=== PATIENT | female | born 1940 | race African-American/Black ===

== ENCOUNTER 2016-07-30 11:36 | Day surgery (SDC) | payer MEDICARE ==
--- NOTE | ~2016-07-30 | OP ---
Record Of Operation [facility] [address] [place]. [address] NAME: DEYVI PEGUERO : 36 STATUS : [facility]#: [id number] AGE: 75 ADM/REG DATE : 07/30/16 MR#: [id number] REPORT SERV DATE: 08/13/16 DICTATED BY: AUDIE JOHNSON DATE: 08/13/16 REPORT STATUS : Draft TRANSCRIBED BY: MODYoselin DATE: 08/13/16 DATE OF PROCEDURE: 07/30/2016 PREOPERATIVE DIAGNOSIS: Lazaro 5 chronic left lower extremity ischemia. POSTOPERATIVE DIAGNOSIS: Lazaro 5 chronic left lower extremity ischemia. PROCEDURES: 1. Aortogram with bilateral lower extremity runoff. 2. Percutaneous angioplasty of the left anterior tibial artery with a 3 mm balloon. SURGEON: Audie Johnson M.D. TOBACCO STEMMER MACHINE: None. ANESTHESIA: MAC plus local. INDICATIONS: The patient is a 75-year-old female who has atherosclerosis of her bilateral lower extremities with a wound on her left foot. She also has some pain in her right lower extremity. Thus, she was consented for angiography with intervention. DESCRIPTION OF PROCEDURE: After informed consent was obtained, the patient was taken to the operating room and placed in the supine position on the operating table. Monitored anesthesia was administered. Her groins were prepped and draped in the usual sterile fashion. Ultrasound-guided access was obtained of the right common femoral artery using a micropuncture technique. An oblique angiogram confirmed puncture within the anterior common femoral artery. I put a wire up into the aorta and placed a 5-Lao sheath. The UF catheter was placed into the perirenal aorta. An aortogram demonstrated no hemodynamically significant aortoiliac disease with patent renal arteries. I selected out the left external iliac artery and obtained sequential imaging down the left lower extremity. There was no hemodynamically significant left common femoral, deep femoral, or superficial femoral artery disease. The popliteal artery was patent. It looked like there was a proximal anterior tibial artery stenosis, but more distal flow was not well visualized. The posterior tibial and peroneal arteries appeared to be occluded with no distal reconstitution. I placed a catheter into the left popliteal artery and obtained additional imaging that demonstrated no distal reconstitution of the posterior tibial or peroneal arteries above the ankle. There was flow via the anterior tibial artery down into the foot. I systemically heparinized and placed a 6-Lao sheath up and over the aortic bifurcation. I crossed the anterior tibial artery stenoses and angioplastied it with a 3 mm balloon. There was a great result with this. Thus, I pulled back my sheath into the right external iliac artery. I obtained sequential imaging down the right lower extremity. There was a right SFA occlusion with disease three-vessel runoff. Flow was not well visualized passed the mid leg. Thus, I withdrew my wire, catheter, and sheath and used a ProGlide device to close the arteriotomy. The patient tolerated the procedure well without any intraprocedural complications noted. Record Of Operation [facility] [address] [place]. [address] NAME: DEYVI PEGUERO : 36 STATUS : [facility]#: [id number] AGE: 75 ADM/REG DATE : 07/30/16 MR#: [id number] REPORT SERV DATE: 08/13/16 DICTATED BY: AUDIE JOHNSON DATE: 08/13/16 REPORT STATUS : Draft TRANSCRIBED BY: CHRISTINE DATE: 08/13/16 ENTRY LEVEL ACCOUNTANT/CHRISTINE Audie Johnson M.D. / [id number] CC: Mary Pitts M.D.
[~2016-07-30 11:36] MED LIST: AMIT25 PO; AMIT50 PO; ASA5GR PO; ASAB PO; ASPERCREME TOP; AT25 PO; ATV.5 PO; B121000P IM; BONIVA150 MG PO; BROVANA15 MCG INH; BUDEPRION XL150 MG PO; CALCARB PO; CALTRA600D PO; CALTRAT600 PO; CAPSAICIN T; CLARIT10 PO; COZ25 PO; CYANO1000T PO; DEBROX6.5 % OT; DRISDOL50000 UNT PO; DUONEB INH; FLONASE NAS; GGEXPSF PO; GLUCOSE TABLETS PO; GLUCOSE TABS PO; GLUCPH PO; HYDROCORT2.51 TOP; HYDROCORTISO2.5 % TOP; IMOD PO; IRON325 MG PO; KURIC2 % TOP; L20 PO; LANTUS SC; LANTUSCART SC; LIDEX CREAM 0.015 GM TOP; LIPITOR20 PO; LOP25 PO; LORTAB 5 PO; LORTAB PO; MACROBID PO; MAXIMUM D3 PO; METOPROLOL PO; MEVACOR40 MG PO; MIRALAXPKT PO; MUCINEX600 MG PO; MYRBETRIQ50 MG PO; NEUR300 PO; NICODERM C7 MG/24 HR TOP; NICOTINE LOZENGE PO; NORCO1 TA1 PO; NORV5 PO; NOVOLOG SC; OXYGEN; PLAVIX PO; PRILO PO; PRIN20 PO; PROAIR HFA INH; REFRESH OPH; ROBITUSSIN DM PO; SENNA-S PO; SENOKOTS PO; SENTAB PO; SPIRIVA INH; T PO; TESS PO; TRAZ50 PO; TRIAMCINOLON0.5 % EX; ULTRAM50 PO; VESICARE10 MG PO; VITAMIN B-121000 MC1 PO; VITD PO; WELLXL150 PO; WHITE PETROLATUM TOP; ZANTAC300 MG PO; ZOFRAN4 PO; ZOL100 PO; ZOVIRAX400 MG PO; ZYRTEC ALLGY10 MG PO; [UNRECOGNIZED DRUG - OTHER] PO
[2016-07-30 12:20] LABS: HEMOGLOBIN 13.1 g/dL (12.0-16.0)
[2016-12-27] MEDS ORDERED: ULTRAM50 PO (17:27)
[2016-12-27] MEDS ORDERED: PRAND1 PO (17:32)
[2016-12-27] MEDS ORDERED: PREND2 PO (17:33)
[2016-12-27] MEDS ORDERED: MELATONIN5 M1 PO (17:35)
[2016-12-27] MEDS ORDERED: LANTUS SC (17:35)
[2016-12-27] MEDS ORDERED: NEUR100 PO (17:37)
[2016-12-27] MEDS ORDERED: SPIRIVA INH (17:37)
[2016-12-27] MEDS ORDERED: CYANO1000T PO (17:38)
[2016-12-27] MEDS ORDERED: NOVOLOG SC (17:38)
[2016-12-27] MEDS ORDERED: L20 PO (17:39)
[2016-12-27] MEDS ORDERED: MUCINEX600 MG PO (17:39)
[2016-12-27] MEDS ORDERED: CALTRA600D PO (17:40)
[2016-12-27] MEDS ORDERED: VENELEX TOP (17:41)
[2016-12-27] MEDS ORDERED: SILVADENE1 % TOP (17:42)
[2016-12-27] MEDS ORDERED: ALBUTEROL0.083 % INH (17:43)
[2016-12-27] MEDS ORDERED: VENTOLIN HFA INH (17:43)
[2016-12-27] MEDS ORDERED: ZOL50 PO (17:44)
[2016-12-27] MEDS ORDERED: WELLXL300 PO (17:46)
[2016-12-27] MEDS ORDERED: MYRBETRIQ25 MG PO (17:46)
[2016-12-27] MEDS ORDERED: 8 HOUR650 MG PO (17:47)
[2016-12-27] MEDS ORDERED: NEUR300 PO (17:47)
[2016-12-27] MEDS ORDERED: VOLTAREN1 % TOP (17:50)
[2016-12-27] MEDS ORDERED: ZANTAC150 MG PO (17:51)
[2016-12-27] MEDS ORDERED: PLAVIX PO (17:52)
[2016-12-27] MEDS ORDERED: MYLANTA LIQUID PO (17:53)
[2016-12-27] MEDS ORDERED: LOP25 PO (17:54)
[2016-12-27] MEDS ORDERED: REFRES1 OPH (17:55)
[2016-12-27] MEDS ORDERED: HALF81 PO (17:55)
[2016-12-27] MEDS ORDERED: TESS PO (17:56)
[2016-12-27] MEDS ORDERED: MIRALAX POWDER1 PKT PO (17:56)
[2016-12-27] MEDS ORDERED: BROVANA15 MCG INH (17:58)
[2016-12-27] MEDS ORDERED: GGDM5ML PO (17:58)
[2016-12-27] MEDS ORDERED: BONIVA150 MG PO (17:59)
[2016-12-27] MEDS ORDERED: PULRESP.5 INH (17:59)
[2016-12-27] MEDS ORDERED: VITD PO (18:00)
[2016-12-27] MEDS ORDERED: T PO (18:00)
[2016-12-27] MEDS ORDERED: LIPITOR20 PO (18:00)
[2016-12-28] MEDS ORDERED: CIP5 PO (13:59)
== END 2016-07-30 19:06 | disposition home or self-care (01) ==
LOC: SDC 11:36 → SSU1 17:46
PROVIDERS: Surgery
PROC: B40DYZZ Plain Radiography of Aorta and Bilateral Lower Extremity Arteries using Other Contrast (ICD-10-PCS; principal; 2016-07-30 13:15)
PROC: 047Q3ZZ Dilation of Left Anterior Tibial Artery, Percutaneous Approach (ICD-10-PCS; 2016-07-30 13:15)
DX: I99.8 Other disorder of circulatory system (principal); E78.00 Pure hypercholesterolemia, unspecified; I73.9 Peripheral vascular disease, unspecified; I25.10 Atherosclerotic heart disease of native coronary artery without angina pectoris; I25.2 Old myocardial infarction; E11.40 Type 2 diabetes mellitus with diabetic neuropathy, unspecified; N17.9 Acute kidney failure, unspecified; J45.909 Unspecified asthma, uncomplicated; J44.9 Chronic obstructive pulmonary disease, unspecified; F32.9 Major depressive disorder, single episode, unspecified; Z90.710 Acquired absence of both cervix and uterus; Z87.891 Personal history of nicotine dependence; Z86.73 Personal history of transient ischemic attack (TIA), and cerebral infarction without residual deficits; Z88.0 Allergy status to penicillin; Z88.2 Allergy status to sulfonamides; Z88.5 Allergy status to narcotic agent; Z88.4 Allergy status to anesthetic agent; Z90.89 Acquired absence of other organs; Z98.49 Cataract extraction status, unspecified eye; Z79.4 Long term (current) use of insulin; Z79.84 Long term (current) use of oral hypoglycemic drugs; Z79.82 Long term (current) use of aspirin; Z79.02 Long term (current) use of antithrombotics/antiplatelets; Z79.899 Other long term (current) drug therapy; Z98.890 Other specified postprocedural states
CPT/HCPCS: 37228; 75625; 75716; 75774; 82962; 85014; 85018; A9270-GY; C1725; C1760; C1769; C1887; C1894; J2370; J3010; Q9966

== ENCOUNTER 2016-08-23 05:23 | Emergency (ER) | payer MEDICARE, OTHER ==
[2016-12-27] MEDS ORDERED: ULTRAM50 PO (17:27)
[2016-12-27] MEDS ORDERED: PRAND1 PO (17:32)
[2016-12-27] MEDS ORDERED: PREND2 PO (17:33)
[2016-12-27] MEDS ORDERED: LANTUS SC (17:35)
[2016-12-27] MEDS ORDERED: MELATONIN5 M1 PO (17:35)
[2016-12-27] MEDS ORDERED: NEUR100 PO (17:37)
[2016-12-27] MEDS ORDERED: SPIRIVA INH (17:37)
[2016-12-27] MEDS ORDERED: CYANO1000T PO (17:38)
[2016-12-27] MEDS ORDERED: NOVOLOG SC (17:38)
[2016-12-27] MEDS ORDERED: MUCINEX600 MG PO (17:39)
[2016-12-27] MEDS ORDERED: L20 PO (17:39)
[2016-12-27] MEDS ORDERED: CALTRA600D PO (17:40)
[2016-12-27] MEDS ORDERED: VENELEX TOP (17:41)
[2016-12-27] MEDS ORDERED: SILVADENE1 % TOP (17:42)
[2016-12-27] MEDS ORDERED: ALBUTEROL0.083 % INH (17:43)
[2016-12-27] MEDS ORDERED: VENTOLIN HFA INH (17:43)
[2016-12-27] MEDS ORDERED: ZOL50 PO (17:44)
[2016-12-27] MEDS ORDERED: WELLXL300 PO (17:46)
[2016-12-27] MEDS ORDERED: MYRBETRIQ25 MG PO (17:46)
[2016-12-27] MEDS ORDERED: 8 HOUR650 MG PO (17:47)
[2016-12-27] MEDS ORDERED: NEUR300 PO (17:47)
[2016-12-27] MEDS ORDERED: VOLTAREN1 % TOP (17:50)
[2016-12-27] MEDS ORDERED: ZANTAC150 MG PO (17:51)
[2016-12-27] MEDS ORDERED: PLAVIX PO (17:52)
[2016-12-27] MEDS ORDERED: MYLANTA LIQUID PO (17:53)
[2016-12-27] MEDS ORDERED: LOP25 PO (17:54)
[2016-12-27] MEDS ORDERED: REFRES1 OPH (17:55)
[2016-12-27] MEDS ORDERED: HALF81 PO (17:55)
[2016-12-27] MEDS ORDERED: TESS PO (17:56)
[2016-12-27] MEDS ORDERED: MIRALAX POWDER1 PKT PO (17:56)
[2016-12-27] MEDS ORDERED: GGDM5ML PO (17:58)
[2016-12-27] MEDS ORDERED: BROVANA15 MCG INH (17:58)
[2016-12-27] MEDS ORDERED: BONIVA150 MG PO (17:59)
[2016-12-27] MEDS ORDERED: PULRESP.5 INH (17:59)
[2016-12-27] MEDS ORDERED: LIPITOR20 PO (18:00)
[2016-12-27] MEDS ORDERED: VITD PO (18:00)
[2016-12-27] MEDS ORDERED: T PO (18:00)
[2016-12-28] MEDS ORDERED: CIP5 PO (13:59)
== END 2016-08-23 08:43 | disposition home or self-care (01) ==
LOC: ER 05:23
PROC: 08QNXZZ Repair Right Upper Eyelid, External Approach (ICD-10-PCS; principal; 2016-08-23)
DX: S02.31XA Fracture of orbital floor, right side, initial encounter for closed fracture (principal); S01.111A Laceration without foreign body of right eyelid and periocular area, initial encounter; H11.31 Conjunctival hemorrhage, right eye; J44.9 Chronic obstructive pulmonary disease, unspecified; N18.9 Chronic kidney disease, unspecified; E11.22 Type 2 diabetes mellitus with diabetic chronic kidney disease; Z88.0 Allergy status to penicillin; Z88.2 Allergy status to sulfonamides; Z88.5 Allergy status to narcotic agent; Z79.899 Other long term (current) drug therapy; W19.XXXA Unspecified fall, initial encounter
CPT/HCPCS: 70450; 70486; 99284

== ENCOUNTER 2016-09-13 15:46 | Emergency (ER) | payer MEDICARE, OTHER ==
[2016-09-13 17:16] LABS: BASOPHILS 0.2 %; BASOPHILS ABSOLUTE 0.02 10/3/uL (0.0-0.16); EOSINOPHILS 5.1 %; EOSINOPHILS ABSOLUTE 0.42 10/3/uL (0.0-0.53); ER CBC TAT 0 Hrs 03 Mins; HEMATOCRIT 39.6 % (36.0-48.0); HEMOGLOBIN 12.6 g/dL (12.0-16.0); IMMATURE GRANULOCYTES 0.1 %; IMMATURE GRANULOCYTES ABSOLUTE 0.01 10/3/uL (0.0-0.11); LYMPHOCYTES 25.8 %; LYMPHOCYTES ABSOLUTE 2.13 10/3/uL (0.67-4.30); MEAN CORPUS HGB CONC 31.8 g/dL (32.0-36.0); MEAN CORPUSCULAR HEMOGLOB 28.6 pg (26.0-34.0); MEAN PLATELET VOLUME 9.7 fL (9.2-13.0); MONOCYTES 8.6 %; MONOCYTES ABSOLUTE 0.71 10/3/uL (0.21-1.20); NEUTROPHILS 60.2 %; NEUTROPHILS ABSOLUTE 4.97 10/3/uL (2.02-8.40); PLATELET COUNT 321 10/3/uL (150-400); RBC DISTRIBUTION WIDTH 16.1 % (12.0-16.0); WHITE BLOOD CELLS 8.3 10/3/uL (4.5-10.5)
[2016-09-13 17:18] LABS: MANUAL DIFF NO %
[2016-09-13 17:34] LABS: A/G RATIO 0.8 (0.7-1.9); BUN (BLOOD UREA NITROGEN) 22 MG/DL (6-23); CHLORIDE, SERUM 106 MMOL/L (96-112); CO2 (CARBON DIOXIDE) 32 MMOL/L (24-34); CREATININE 1.22 MG/DL (0.55-1.02); GFR AFRICAN AMERICAN 49 ML/MIN (>=60); GFR NON AFRICAN AMERICAN 42 ML/MIN (>=60); GLOBULIN 3.9 G/DL (2.5-4.1); SGOT(AST) 14 U/L (5-40); SGPT(ALT) 15 U/L (5-65); SODIUM, SERUM 142 MMOL/L (135-148); TOTAL BILIRUBIN 0.2 MG/DL (0-1.2); TOTAL PROTEIN 6.9 G/DL (6.0-8.5)
[2016-09-13 17:36] LABS: ALKALINE PHOSPHATASE 136 U/L (45-117); GLUCOSE, SERUM 70 MG/DL (60-99)
[2016-12-27] MEDS ORDERED: ULTRAM50 PO (17:27)
[2016-12-27] MEDS ORDERED: PRAND1 PO (17:32)
[2016-12-27] MEDS ORDERED: PREND2 PO (17:33)
[2016-12-27] MEDS ORDERED: MELATONIN5 M1 PO (17:35)
[2016-12-27] MEDS ORDERED: LANTUS SC (17:35)
[2016-12-27] MEDS ORDERED: NEUR100 PO (17:37)
[2016-12-27] MEDS ORDERED: SPIRIVA INH (17:37)
[2016-12-27] MEDS ORDERED: NOVOLOG SC (17:38)
[2016-12-27] MEDS ORDERED: CYANO1000T PO (17:38)
[2016-12-27] MEDS ORDERED: MUCINEX600 MG PO (17:39)
[2016-12-27] MEDS ORDERED: L20 PO (17:39)
[2016-12-27] MEDS ORDERED: CALTRA600D PO (17:40)
[2016-12-27] MEDS ORDERED: VENELEX TOP (17:41)
[2016-12-27] MEDS ORDERED: SILVADENE1 % TOP (17:42)
[2016-12-27] MEDS ORDERED: ALBUTEROL0.083 % INH (17:43)
[2016-12-27] MEDS ORDERED: VENTOLIN HFA INH (17:43)
[2016-12-27] MEDS ORDERED: ZOL50 PO (17:44)
[2016-12-27] MEDS ORDERED: WELLXL300 PO (17:46)
[2016-12-27] MEDS ORDERED: MYRBETRIQ25 MG PO (17:46)
[2016-12-27] MEDS ORDERED: 8 HOUR650 MG PO (17:47)
[2016-12-27] MEDS ORDERED: NEUR300 PO (17:47)
[2016-12-27] MEDS ORDERED: VOLTAREN1 % TOP (17:50)
[2016-12-27] MEDS ORDERED: ZANTAC150 MG PO (17:51)
[2016-12-27] MEDS ORDERED: PLAVIX PO (17:52)
[2016-12-27] MEDS ORDERED: MYLANTA LIQUID PO (17:53)
[2016-12-27] MEDS ORDERED: LOP25 PO (17:54)
[2016-12-27] MEDS ORDERED: REFRES1 OPH (17:55)
[2016-12-27] MEDS ORDERED: HALF81 PO (17:55)
[2016-12-27] MEDS ORDERED: MIRALAX POWDER1 PKT PO (17:56)
[2016-12-27] MEDS ORDERED: TESS PO (17:56)
[2016-12-27] MEDS ORDERED: GGDM5ML PO (17:58)
[2016-12-27] MEDS ORDERED: BROVANA15 MCG INH (17:58)
[2016-12-27] MEDS ORDERED: BONIVA150 MG PO (17:59)
[2016-12-27] MEDS ORDERED: PULRESP.5 INH (17:59)
[2016-12-27] MEDS ORDERED: LIPITOR20 PO (18:00)
[2016-12-27] MEDS ORDERED: VITD PO (18:00)
[2016-12-27] MEDS ORDERED: T PO (18:00)
[2016-12-28] MEDS ORDERED: CIP5 PO (13:59)
== END 2016-09-13 20:08 | disposition home or self-care (01) ==
LOC: ER 15:46
PROVIDERS: Hospitalist
DX: M79.604 Pain in right leg (principal); R06.02 Shortness of breath; R09.02 Hypoxemia; J45.909 Unspecified asthma, uncomplicated; J44.9 Chronic obstructive pulmonary disease, unspecified; E11.22 Type 2 diabetes mellitus with diabetic chronic kidney disease; N18.9 Chronic kidney disease, unspecified; Z90.710 Acquired absence of both cervix and uterus; F17.200 Nicotine dependence, unspecified, uncomplicated; Z88.0 Allergy status to penicillin; Z88.2 Allergy status to sulfonamides; Z88.5 Allergy status to narcotic agent; Z88.8 Allergy status to other drugs, medicaments and biological substances; Z79.4 Long term (current) use of insulin; Z79.02 Long term (current) use of antithrombotics/antiplatelets; Z79.899 Other long term (current) drug therapy
CPT/HCPCS: 71010; 73560-LT; 80053; 85025; 93971; 99285

== ENCOUNTER 2016-10-05 20:33 | Inpatient (IN) | payer MEDICARE ==
--- NOTE | ~2016-10-05 | DS ---
Discharge Summary [facility] [address] [place]. [address] NAME: DEYVI PEGUERO : 36 STATUS : DIS IN PAT#: [id number] AGE: 76 ADM/REG DATE : 10/05/16 MR#: [id number] REPORT SERV DATE: 10/16/16 DICTATED BY: VIRGINIA OLMEDO DATE: 10/15/16 REPORT STATUS : Draft TRANSCRIBED BY: CHRISTINE DATE: 10/15/16 Data Collection from hospitalization DISCHARGE DIAGNOSIS(ES): 1. Chronic obstructive pulmonary disease with exacerbation, improved. 2. Urinary tract infection. 3. Coronary artery disease, stable BNP of 112. 4. Depression. 5. Peripheral vascular disease with left lower extremity calluses. CONSULTATIONS: None. PROCEDURES PERFORMED: Venous imaging of the left lower extremity, 10/07/2016. MEDICATIONS: Refresh two drops each eye four times daily; aspirin 81 mg daily; Voltaren 2 g topically four times daily as needed; Lipitor 20 mg at bedtime; Wellbutrin XL 200 mg daily; Plavix 75 mg daily; vitamin B12 of 100 mcg daily; Caltrate 600 mg twice daily; Diabetic Tussin 10 mL every four hours as needed for cough, Zantac 150 mg twice daily, Lasix 20 mg every morning, Neurontin 300 mg at bedtime, 100 mg in the morning and afternoon; Mucinex 600 mg twice daily; Lantus SoloSTAR 40 units daily; Levaquin 750 mg daily through 10/12/2016; Zyrtec 10 mg daily; Medrol 4 mg after lunch and supper, 4 mg at bedtime, 4 mg before breakfast; Lopressor 25 mg twice daily; Myrbetriq 25 mg at bedtime; Zoloft 50 mg daily; Brovana 15 mcg twice daily; Pulmicort Respules 0.5 mg twice daily; Tylenol 650 mg four times daily as needed; Prandin 0.5 mg three times daily; Maranda-Lanta 30 mL every six hours as needed for heartburn; MiraLAX powder 17 g daily as needed for constipation; Tessalon 100 to 200 mg three times daily; DuoNeb four times daily as needed for shortness of breath; Boniva 150 mg every 30 days; vitamin D 50,000 units every 30 days; and Spiriva one capsule every morning peak flow meter three times daily and as needed. CONDITION AT DISCHARGE: Upon discharge, she did appear to be doing well and had no new complaints. DISPOSITION: She was to have a mechanically soft diet with chopped meats with gravy. She was to have activity as discussed. HOSPITAL COURSE: This 76-year-old female was in her usual state of health until the afternoon of admission. After arriving home, she developed nausea and vomiting. While our [employer] TALENT DIRECTOR was there, she complained of feeling unwell and having chills, and when they checked her temperature, apparently, she had a temperature of 101.2 and she was transferred to the hospital for further evaluation. On arrival, in the emergency room, she had a temperature of 101.4 and appeared ill. The ER attending appreciated crackles on exam and was concerned that the patient had aspirated and she was started on IV Levaquin. On the morning following admission, she was up and about to eat breakfast, but she was a poor historian and could not give any significant details as to why she was in the hospital. I did speak to both of her daughters, Lizette Segundo and Leticia Mckeon, and they pretty much confirmed the above history. She was admitted for further evaluation and treatment. Upon admission to the hospital, she had been placed on a diet as tolerated. She was begun on oxygen at 4 L by nasal cannula. She had been placed on bronchodilators per protocol. She Discharge Summary [address] [place]. [address] NAME: DEYVI PEGUERO CRISTIANO : 36 STATUS : DIS IN PAT#: [id number] AGE: 76 ADM/REG DATE : 10/05/16 MR#: [id number] REPORT SERV DATE: 10/16/16 DICTATED BY: VIRGINIA OLMEDO DATE: 10/15/16 REPORT STATUS : Draft TRANSCRIBED BY: CHRISTINE DATE: 10/15/16 was begun on Levaquin at 750 mg IV daily. She had also been placed on electrolyte replacement protocol. Following the day of admission, she was afebrile and her vital signs were stable and she did appear to be doing well. She was continued on her current medications. On 10/07/2016, she had no acute complaints. She was afebrile, and her vital signs had remained stable. Her WBCs were 13.7. She was continued on Levaquin and bronchodilators and was begun on Medrol Dosepak. She did undergo the above left lower extremity venous ultrasound. She was found to have a stage I pressure ulcer on the left heel. She had been evaluated by Physical Therapy. On 10/08/2016, she did state that she had felt better, however, did still have a deep wet cough noted. Her O2 saturation on 3 L was at 92%. She was continued on supportive care. Her venous ultrasound had revealed no DVT. She was continued on her current medications. Blood cultures x2 were noted to have been negative. She was noted to be nitrite positive on her urine. However, no urine culture was done, but she was on Levaquin. She did remain in stable condition, and as she continued to do well, she was then discharged on 10/09/2016 with the above instructions. Information collected by: Santa Stoner. I submit the above information as my discharge summary. BUFFY/CHRISTINE Virginia Olmedo M.D. / [id number] CC: Mary Myers M.D.
--- NOTE | ~2016-10-05 | HP ---
History And Physical [address] [place] [address] NAME: DEYVI PEGUERO : 38 STATUS : ADM IN PAT#: [id number] AGE: 76 ADM/REG DATE : 10/05/16 MR#: [id number] REPORT SERV DATE: 10/06/16 DICTATED BY: VIRGINIA OLMEDO DATE: 10/06/16 REPORT STATUS : Draft TRANSCRIBED BY: MODL DATE: 10/06/16 DATE OF ADMISSION: 10/05/2016 ADDENDUM The patient did have an EKG which showed sinus tachycardia at 160 beats per minute with some premature atrial complexes, left atrial enlargement, left axis deviation and a Q and III and aVF but no acute ST changes. NEIL/CHRISTINE Virginia Olmedo M.D. / [id number] CC: Mary Myers M.D.
--- NOTE | ~2016-10-05 | HP ---
History And Physical [address] [address] NAME: DEYVI MASON : 36 STATUS : ADM IN [facility]#: [id number] AGE: 76 ADM/REG DATE : 10/05/16 MR#: [id number] REPORT SERV DATE: 10/06/16 DICTATED BY: VIRGINIA OLMEDO DATE: 10/06/16 REPORT STATUS : Draft TRANSCRIBED BY: MODL DATE: 10/06/16 DATE OF ADMISSION: 10/05/2016 CHIEF COMPLAINT: Nausea, vomiting, and fever. HISTORY OF PRESENT ILLNESS: Ms. Mason is a 76-year-old female, who was in her usual state of health until yesterday afternoon after arriving home, she developed nausea and vomiting. While our PACE PEAR PICKER was there, she complained of feeling unwell and having chills, and when they checked her temperature, apparently she had a temperature of 101.2, so she was transferred to the hospital for further evaluation. On arrival in the ER, she had a temperature of 101.4 and appeared ill. The ER attending appreciated crackles on exam and was concerned that the patient has aspirated, so she was started on IV Levaquin. This morning, the patient is up and about to eat breakfast, but she is a poor historian and could not give any significant details as to why she was in the hospital. I did speak to both her daughters, Lizette Segundo and Leticia Osborn, and they pretty much confirmed the above history. ALLERGIES: PENICILLIN, MORPHINE, SULFA, AND NOVOCAIN. PRESENT MEDICATIONS: Include Lantus 51 units at 6 p.m., Refresh eyedrops, guaifenesin ER 600 mg twice daily, MiraLAX 17 g daily as needed, vitamin B12 at 1000 mcg daily, sertraline 100 mg at bedtime, Tessalon Perles 100 mg one to two tablets three times a day as needed, Robitussin, Zyrtec 10 mg daily, Lasix 20 mg daily, CalCarb with vitamin D 600/400 twice daily, DuoNeb q.4 to 6 hours as needed, Brovana 1 nebulizer treatment twice daily, Pulmicort nebulizer twice daily, Boniva 150 mg monthly, gabapentin 300 mg at bedtime and 100 mg in the a.m. and 100 mg in afternoon, bupropion XL 150 mg daily, Tylenol 650 four times a day as needed, tramadol 50 mg at bedtime as needed, repaglinide 0.5 mg 1 tablet 15 minutes before each meal, Voltaren gel, Myrbetriq 50 mg daily, ranitidine 150 mg twice daily, Plavix 75 mg daily, Mylanta as needed, metoprolol 25 mg daily, aspirin 81 mg daily, vitamin D3 monthly, atorvastatin 20 mg at bedtime, oxygen 2 L at bedtime, and Spiriva HandiHaler 18 mcg daily. PAST MEDICAL HISTORY: Significant for type 2 diabetes with peripheral vascular disease, coronary artery disease, status post OR, hyperlipidemia, COPD, ex-smoker, pulmonary nodules, chronic kidney disease stage 3, osteoarthritis, osteoporosis, multinodular goiter, hyperparathyroidism, depression, bladder spasms, and gastroesophageal reflux disease. SOCIAL HISTORY: She is a former smoker and she lives with her daughter and she is a [employer] participant. FAMILY HISTORY: Noncontributory. REVIEW OF SYSTEMS: She denies chest pain, shortness of breath, or chills. No abdominal pain. Denies nausea. PHYSICAL EXAMINATION: VITAL SIGNS: Temperature is 97.3, blood pressure is 145/66, pulse is 108, respiratory rate History And Physical [address] [address] NAME: DEYVI MASON : 38 STATUS : ADM IN [facility]#: [id number] AGE: 76 ADM/REG DATE : 10/05/16 MR#: [id number] REPORT SERV DATE: 10/06/16 DICTATED BY: VIRGINIA OLMEDO DATE: 10/06/16 REPORT STATUS : Draft TRANSCRIBED BY: CHRISTINE DATE: 10/06/16 is 18, and O2 saturation is 96% on 4 L. GENERAL: She is an elderly black female, in no apparent distress. Oxygen via nasal cannula. HEENT: Normocephalic, atraumatic. Conjunctiva not injected. No scleral icterus. Edentulous. NECK: Supple. No JVD. She does have thyroid enlargement, right greater than left. CARDIAC: Regular rate and rhythm. LUNGS: Diffuse rhonchi. She does have some crackles at her right base. ABDOMEN: Positive bowel sounds. Soft, nondistended, nontender. Does have scars. GENITOURINARY: No fold. EXTREMITIES: She has trace edema with linear indentations indicating that she did have edema and now her legs have decreased in size. Her left lower extremity is larger than her right lower extremity. She does have a scar on her left lower extremity, not sure that is due to vein ligation, etc., NEUROLOGIC: She is alert, fluent, follow simple directions, but she is really unable to answer questions. Her answers are vague and really does not give a lot of detail. No facial drooping. No obvious focal weakness. SKIN: No pressure ulcers. LABORATORY EVALUATION: White count on admission was 16.9, this morning it is 17.4; hemoglobin is 11.8, and normal platelet. Sodium was 139, chloride 104, potassium 4.4, BUN 18, creatinine 1.03, glucose was 208, albumin was 3.1, alkaline phosphatase 145, lipase was normal at 78. Lactate was normal at 0.8. UA just showed positive nitrites, but only occasional bacteria, and 3 wbc's. Chest x-ray on admission showed pulmonary venous hypertension with mild pleural edema. No consolidation or effusion. Chest x-ray this morning shows pulmonary hypertension, it is mildly improved. IMPRESSION AND PLAN: 1. Fever. Admitting diagnosis was aspiration pneumonia. There is not anything definite on chest x-ray. She does have crackles at the right base. She also has chronic obstructive pulmonary disease. Her white count is elevated. She is requiring significant amount of oxygen. Radiographic appearance of pneumonia sometimes lags behind, so we will continue the Levaquin. Updated her daughters on the risk of tendon rupture, peripheral neuropathy, and mental status changes as being a risk for using this medication; however, we are limited risks her allergies. Continue her broncholith dilators, her inhaled steroids, her oxygen, her Mucinex, and we will follow up on her blood cultures. 2. Type 2 diabetes. I will reduce her Lantus from 51 units to 20 units. We will initiate a hypoglycemic protocol. Use a NovoLog sliding scale. Discontinue her oral hypoglycemic. 3. Left lower extremity is larger than right lower extremity. We will do an ultrasound of the left lower extremity to rule out deep venous thrombosis. For her coronary artery disease, we will continue her metoprolol, her aspirin, her Plavix, and atorvastatin. I suspect her pulse is elevated because she has not received her metoprolol and she is having a rebound tachycardia. For her depression, we will continue her sertraline and History And Physical [address] [place]. [address] NAME: DEYVI MASON : 36 STATUS : ADM IN PAT#: [id number] AGE: 76 ADM/REG DATE : 10/05/16 MR#: [id number] REPORT SERV DATE: 10/06/16 DICTATED BY: VIRGINIA OLMEDO DATE: 10/06/16 REPORT STATUS : Draft TRANSCRIBED BY: CHRISTINE DATE: 10/06/16 her bupropion. For gastroesophageal reflux disease, we will continue her on ranitidine. For her pain, we will continue tramadol once daily as needed and her Voltaren gel. For her venous insufficiency, we will continue her furosemide. I do not see that she has a diagnosis of heart failure, but because of the pulmonary vascular congestion, I will just go ahead and get a BNP for the morning, but of present, she has a little peripheral edema and is not complaining about shortness of breath, and lastly, the patient is a DNR with limited additional interventions. NEIL/CHRISTINE Virginia Olmedo M.D. / [id number] CC: Mary Myers M.D.
[2016-10-05 19:31] LABS: BASOPHILS 0.1 %; BASOPHILS ABSOLUTE 0.02 10/3/uL (0.0-0.16); EOSINOPHILS 0.3 %; EOSINOPHILS ABSOLUTE 0.05 10/3/uL (0.0-0.53); ER CBC TAT 0 Hrs 00 Mins; HEMATOCRIT 37.3 % (36.0-48.0); HEMOGLOBIN 11.8 g/dL (12.0-16.0); IMMATURE GRANULOCYTES 0.3 %; IMMATURE GRANULOCYTES ABSOLUTE 0.05 10/3/uL (0.0-0.11); LYMPHOCYTES 5.7 %; LYMPHOCYTES ABSOLUTE 0.96 10/3/uL (0.67-4.30); MEAN CORPUS HGB CONC 31.6 g/dL (32.0-36.0); MEAN CORPUSCULAR VOLUME 88.6 fL (80-100); MEAN PLATELET VOLUME 9.9 fL (9.2-13.0); MONOCYTES 4.7 %; MONOCYTES ABSOLUTE 0.79 10/3/uL (0.21-1.20); NEUTROPHILS 88.9 %; PLATELET COUNT 357 10/3/uL (150-400); RBC DISTRIBUTION WIDTH 15.5 % (12.0-16.0); RED CELL COUNT 4.21 10/6/uL (4.0-5.6)
[2016-10-05 19:33] LABS: MANUAL DIFF NO %; WHITE BLOOD CELLS 16.9 10/3/uL (4.5-10.5)
[2016-10-05 19:45] LABS: A/G RATIO 0.8 (0.7-1.9); ALBUMIN 3.1 G/DL (3.5-5.0); ALKALINE PHOSPHATASE 145 U/L (45-117); CALCIUM, SERUM 8.9 MG/DL (8.5-10.4); CHLORIDE, SERUM 104 MMOL/L (96-112); CO2 (CARBON DIOXIDE) 28 MMOL/L (24-34); CREATININE 1.03 MG/DL (0.55-1.02); GFR AFRICAN AMERICAN 60 ML/MIN (>=60); GFR NON AFRICAN AMERICAN 52 ML/MIN (>=60); GLOBULIN 3.8 G/DL (2.5-4.1); POTASSIUM, SERUM 4.4 MMOL/L (3.5-5.3); SGOT(AST) 14 U/L (5-40); SGPT(ALT) 18 U/L (5-65); SODIUM, SERUM 139 MMOL/L (135-148); TOTAL BILIRUBIN 0.6 MG/DL (0-1.2); TOTAL PROTEIN 6.9 G/DL (6.0-8.5)
[2016-10-05 19:47] LABS: BUN (BLOOD UREA NITROGEN) 18 MG/DL (6-23); GLUCOSE, SERUM 208 MG/DL (60-99)
[2016-10-05 19:48] LABS: LACTATE 0.8 MMOL/L (0.3-2.4)
[2016-10-05 20:46] LABS: INTERNATIONAL NORMAL RATI 1.1 UNITS (-); PARTIAL THROMBO TIME 34.2 SEC (22.5-37.2); PROTIME (NOT ORD) 14.3 SEC (12.0-14.5)
[2016-10-05 21:11] LABS: ASCORBIC ACID (UR NOT ORDER) NEG (NEG); BILIRUBIN, URINE NEGATIVE (NEG); ER URINALYSIS TAT 0 Hrs 15 Mins; KETONE, URINE NEGATIVE (NEG); LEUKOCYTE ESTERASE(NOT OR NEG (NEG); NITRITE (URINE) POS (NEG); WBC (NOT ORDERED) (RFLEX) 3 (0-5)
[2016-10-05] MEDS ORDERED: WELLXL150 PO (23:10)
[2016-10-05] MEDS ORDERED: NEUR100 PO (23:10)
[2016-10-05] MEDS ORDERED: NEUR300 PO (23:10)
[2016-10-05] MEDS ORDERED: PRAND5 PO ×2 (23:11→23:12)
[2016-10-05] MEDS ORDERED: T PO (23:11)
[2016-10-05] MEDS ORDERED: ZANTAC 150 PO (23:12)
[2016-10-05] MEDS ORDERED: MYRBETRIQ50 MG PO (23:12)
[2016-10-05] MEDS ORDERED: VOLTAREN1 % TOP (23:12)
[2016-10-05] MEDS ORDERED: PLAVIX PO (23:13)
[2016-10-05] MEDS ORDERED: ASAB PO (23:13)
[2016-10-05] MEDS ORDERED: GERI-LANTA PO (23:13)
[2016-10-05] MEDS ORDERED: LOP25 PO (23:13)
[2016-10-05] MEDS ORDERED: MIRALAX POWDER1 PKT PO (23:14)
[2016-10-05] MEDS ORDERED: CYANO1000T PO (23:14)
[2016-10-05] MEDS ORDERED: REFRESH OPH SO0.3 ML OPH (23:14)
[2016-10-05] MEDS ORDERED: LANTUSCART SC (23:14)
[2016-10-05] MEDS ORDERED: TESS PO (23:15)
[2016-10-05] MEDS ORDERED: ZOL100 PO (23:15)
[2016-10-05] MEDS ORDERED: ZYRTEC ALLGY10 MG PO (23:18)
[2016-10-05] MEDS ORDERED: L20 PO (23:18)
[2016-10-05] MEDS ORDERED: DIABETIC PO (23:18)
[2016-10-05] MEDS ORDERED: BROVANA15 MCG INH (23:19)
[2016-10-05] MEDS ORDERED: CALTRA600D PO (23:19)
[2016-10-05] MEDS ORDERED: DUONEB INH (23:19)
[2016-10-05] MEDS ORDERED: BONIVA150 MG PO (23:20)
[2016-10-05] MEDS ORDERED: PULRESP.5 INH (23:20)
[2016-10-05] MEDS ORDERED: VITD PO (23:21)
[2016-10-05] MEDS ORDERED: SPIRIVA INH (23:21)
[2016-10-05] MEDS ORDERED: LIPITOR20 PO (23:21)
[2016-10-05] MEDS ORDERED: MUCINEX600 MG PO (23:24)
[2016-10-06 05:41] LABS: A/G RATIO 0.8 (0.7-1.9); ALBUMIN 2.9 G/DL (3.5-5.0); ALKALINE PHOSPHATASE 125 U/L (45-117); BUN (BLOOD UREA NITROGEN) 17 MG/DL (6-23); CALCIUM, SERUM 8.7 MG/DL (8.5-10.4); CHLORIDE, SERUM 103 MMOL/L (96-112); CO2 (CARBON DIOXIDE) 30 MMOL/L (24-34); GFR AFRICAN AMERICAN 56 ML/MIN (>=60); GFR NON AFRICAN AMERICAN 48 ML/MIN (>=60); GLOBULIN 3.6 G/DL (2.5-4.1); GLUCOSE, SERUM 156 MG/DL (60-99); SGOT(AST) 10 U/L (5-40); SGPT(ALT) 17 U/L (5-65); SODIUM, SERUM 138 MMOL/L (135-148); TOTAL BILIRUBIN 0.4 MG/DL (0-1.2); TOTAL PROTEIN 6.5 G/DL (6.0-8.5)
[2016-10-06 06:04] LABS: BASOPHILS 0.1 %; BASOPHILS ABSOLUTE 0.02 10/3/uL (0.0-0.16); EOSINOPHILS 0.1 %; EOSINOPHILS ABSOLUTE 0.01 10/3/uL (0.0-0.53); HEMATOCRIT 35.5 % (36.0-48.0); HEMOGLOBIN 11.6 g/dL (12.0-16.0); IMMATURE GRANULOCYTES 0.3 %; IMMATURE GRANULOCYTES ABSOLUTE 0.06 10/3/uL (0.0-0.11); LYMPHOCYTES 9.4 %; LYMPHOCYTES ABSOLUTE 1.63 10/3/uL (0.67-4.30); MEAN CORPUS HGB CONC 32.7 g/dL (32.0-36.0); MEAN CORPUSCULAR HEMOGLOB 29.1 pg (26.0-34.0); MEAN PLATELET VOLUME 10.2 fL (9.2-13.0); MONOCYTES 7.3 %; MONOCYTES ABSOLUTE 1.27 10/3/uL (0.21-1.20); NEUTROPHILS 82.8 %; NEUTROPHILS ABSOLUTE 14.39 10/3/uL (2.02-8.40); RBC DISTRIBUTION WIDTH 15.3 % (12.0-16.0); RED CELL COUNT 3.99 10/6/uL (4.0-5.6); WHITE BLOOD CELLS 17.4 10/3/uL (4.5-10.5)
[2016-10-06 06:26] LABS: MANUAL DIFF NO %; PLATELET COUNT 326 10/3/uL (150-400)
[2016-10-06 06:28] LABS: PLATELET ESTIMATE ADQ (ADEQUATE); RBC MORPHOLOGY NORM (NORMAL)
[2016-10-07 06:20] LABS: BASOPHILS 0.1 %; BASOPHILS ABSOLUTE 0.01 10/3/uL (0.0-0.16); EOSINOPHILS 1.5 %; HEMATOCRIT 35.6 % (36.0-48.0); HEMOGLOBIN 11.3 g/dL (12.0-16.0); IMMATURE GRANULOCYTES 0.2 %; IMMATURE GRANULOCYTES ABSOLUTE 0.03 10/3/uL (0.0-0.11); LYMPHOCYTES 9.3 %; LYMPHOCYTES ABSOLUTE 1.28 10/3/uL (0.67-4.30); MEAN CORPUS HGB CONC 31.7 g/dL (32.0-36.0); MEAN CORPUSCULAR HEMOGLOB 28.3 pg (26.0-34.0); MEAN CORPUSCULAR VOLUME 89.2 fL (80-100); MEAN PLATELET VOLUME 9.8 fL (9.2-13.0); MONOCYTES 6.8 %; MONOCYTES ABSOLUTE 0.93 10/3/uL (0.21-1.20); NEUTROPHILS 82.1 %; NEUTROPHILS ABSOLUTE 11.24 10/3/uL (2.02-8.40); PLATELET COUNT 322 10/3/uL (150-400); RBC DISTRIBUTION WIDTH 15.6 % (12.0-16.0); RED CELL COUNT 3.99 10/6/uL (4.0-5.6); WHITE BLOOD CELLS 13.7 10/3/uL (4.5-10.5)
[2016-10-07 06:21] LABS: MANUAL DIFF NO %
[2016-10-07 06:28] LABS: BUN (BLOOD UREA NITROGEN) 15 MG/DL (6-23); CALCIUM, SERUM 9.2 MG/DL (8.5-10.4); CHLORIDE, SERUM 106 MMOL/L (96-112); CO2 (CARBON DIOXIDE) 28 MMOL/L (24-34); CREATININE 1.02 MG/DL (0.55-1.02); GFR AFRICAN AMERICAN 61 ML/MIN (>=60); GFR NON AFRICAN AMERICAN 53 ML/MIN (>=60); GLUCOSE, SERUM 111 MG/DL (60-99); POTASSIUM, SERUM 4.3 MMOL/L (3.5-5.3); SODIUM, SERUM 140 MMOL/L (135-148)
[2016-10-08 05:54] LABS: BASOPHILS 0.1 %; BASOPHILS ABSOLUTE 0.01 10/3/uL (0.0-0.16); EOSINOPHILS 0 %; HEMATOCRIT 34.6 % (36.0-48.0); HEMOGLOBIN 11.1 g/dL (12.0-16.0); IMMATURE GRANULOCYTES 0.2 %; IMMATURE GRANULOCYTES ABSOLUTE 0.02 10/3/uL (0.0-0.11); LYMPHOCYTES 8.7 %; LYMPHOCYTES ABSOLUTE 0.96 10/3/uL (0.67-4.30); MEAN CORPUS HGB CONC 32.1 g/dL (32.0-36.0); MEAN CORPUSCULAR HEMOGLOB 28.1 pg (26.0-34.0); MEAN CORPUSCULAR VOLUME 87.6 fL (80-100); MEAN PLATELET VOLUME 9.9 fL (9.2-13.0); MONOCYTES 6.4 %; NEUTROPHILS 84.6 %; PLATELET COUNT 333 10/3/uL (150-400); RBC DISTRIBUTION WIDTH 15.4 % (12.0-16.0); RED CELL COUNT 3.95 10/6/uL (4.0-5.6)
[2016-10-08 05:57] LABS: MANUAL DIFF NO %
[2016-10-08 06:03] LABS: BUN (BLOOD UREA NITROGEN) 17 MG/DL (6-23); CALCIUM, SERUM 9.3 MG/DL (8.5-10.4); CHLORIDE, SERUM 101 MMOL/L (96-112); CO2 (CARBON DIOXIDE) 28 MMOL/L (24-34); CREATININE 1.13 MG/DL (0.55-1.02); GFR AFRICAN AMERICAN 54 ML/MIN (>=60); GFR NON AFRICAN AMERICAN 47 ML/MIN (>=60); GLUCOSE, SERUM 229 MG/DL (60-99); POTASSIUM, SERUM 4.4 MMOL/L (3.5-5.3); SODIUM, SERUM 134 MMOL/L (135-148)
[2016-10-09 05:58] LABS: BASOPHILS 0.1 %; BASOPHILS ABSOLUTE 0.01 10/3/uL (0.0-0.16); EOSINOPHILS 0.1 %; EOSINOPHILS ABSOLUTE 0.01 10/3/uL (0.0-0.53); HEMATOCRIT 36.2 % (36.0-48.0); IMMATURE GRANULOCYTES 0.4 %; IMMATURE GRANULOCYTES ABSOLUTE 0.04 10/3/uL (0.0-0.11); LYMPHOCYTES 14.3 %; LYMPHOCYTES ABSOLUTE 1.53 10/3/uL (0.67-4.30); MEAN CORPUS HGB CONC 33.1 g/dL (32.0-36.0); MEAN CORPUSCULAR HEMOGLOB 29.1 pg (26.0-34.0); MEAN CORPUSCULAR VOLUME 87.7 fL (80-100); MONOCYTES 7.2 %; MONOCYTES ABSOLUTE 0.77 10/3/uL (0.21-1.20); NEUTROPHILS 77.9 %; NEUTROPHILS ABSOLUTE 8.33 10/3/uL (2.02-8.40); PLATELET COUNT 354 10/3/uL (150-400); RBC DISTRIBUTION WIDTH 14.8 % (12.0-16.0); RED CELL COUNT 4.13 10/6/uL (4.0-5.6); WHITE BLOOD CELLS 10.7 10/3/uL (4.5-10.5)
[2016-10-09 05:59] LABS: MANUAL DIFF NO %
[2016-10-09 06:18] LABS: BUN (BLOOD UREA NITROGEN) 22 MG/DL (6-23); CALCIUM, SERUM 9.9 MG/DL (8.5-10.4); CHLORIDE, SERUM 98 MMOL/L (96-112); CO2 (CARBON DIOXIDE) 26 MMOL/L (24-34); CREATININE 1.02 MG/DL (0.55-1.02); GFR AFRICAN AMERICAN 61 ML/MIN (>=60); GFR NON AFRICAN AMERICAN 53 ML/MIN (>=60); GLUCOSE, SERUM 267 MG/DL (60-99); POTASSIUM, SERUM 4.6 MMOL/L (3.5-5.3); SODIUM, SERUM 131 MMOL/L (135-148)
[2016-10-09] MEDS ORDERED: WELLBUTRIN200 MG PO (10:20)
[2016-10-09] MEDS ORDERED: LANTUS (10:29)
[2016-10-09] MEDS ORDERED: LEVAQUIN750 MG PO (10:31)
[2016-10-09] MEDS ORDERED: MEDROL4 PO (10:33)
[2016-10-09] MEDS ORDERED: MEDROL4 ×3 (10:34→10:36)
[2016-10-09] MEDS ORDERED: MYRBETRIQ25 MG (10:38)
[2016-10-09] MEDS ORDERED: ZOL50 PO (10:39)
[2016-12-27] MEDS ORDERED: ULTRAM50 PO (17:27)
[2016-12-27] MEDS ORDERED: PRAND1 PO (17:32)
[2016-12-27] MEDS ORDERED: PREND2 PO (17:33)
[2016-12-27] MEDS ORDERED: LANTUS SC (17:35)
[2016-12-27] MEDS ORDERED: MELATONIN5 M1 PO (17:35)
[2016-12-27] MEDS ORDERED: NEUR100 PO (17:37)
[2016-12-27] MEDS ORDERED: SPIRIVA INH (17:37)
[2016-12-27] MEDS ORDERED: CYANO1000T PO (17:38)
[2016-12-27] MEDS ORDERED: NOVOLOG SC (17:38)
[2016-12-27] MEDS ORDERED: L20 PO (17:39)
[2016-12-27] MEDS ORDERED: MUCINEX600 MG PO (17:39)
[2016-12-27] MEDS ORDERED: CALTRA600D PO (17:40)
[2016-12-27] MEDS ORDERED: VENELEX TOP (17:41)
[2016-12-27] MEDS ORDERED: SILVADENE1 % TOP (17:42)
[2016-12-27] MEDS ORDERED: ALBUTEROL0.083 % INH (17:43)
[2016-12-27] MEDS ORDERED: VENTOLIN HFA INH (17:43)
[2016-12-27] MEDS ORDERED: ZOL50 PO (17:44)
[2016-12-27] MEDS ORDERED: WELLXL300 PO (17:46)
[2016-12-27] MEDS ORDERED: MYRBETRIQ25 MG PO (17:46)
[2016-12-27] MEDS ORDERED: NEUR300 PO (17:47)
[2016-12-27] MEDS ORDERED: 8 HOUR650 MG PO (17:47)
[2016-12-27] MEDS ORDERED: VOLTAREN1 % TOP (17:50)
[2016-12-27] MEDS ORDERED: ZANTAC150 MG PO (17:51)
[2016-12-27] MEDS ORDERED: PLAVIX PO (17:52)
[2016-12-27] MEDS ORDERED: MYLANTA LIQUID PO (17:53)
[2016-12-27] MEDS ORDERED: LOP25 PO (17:54)
[2016-12-27] MEDS ORDERED: HALF81 PO (17:55)
[2016-12-27] MEDS ORDERED: REFRES1 OPH (17:55)
[2016-12-27] MEDS ORDERED: MIRALAX POWDER1 PKT PO (17:56)
[2016-12-27] MEDS ORDERED: TESS PO (17:56)
[2016-12-27] MEDS ORDERED: BROVANA15 MCG INH (17:58)
[2016-12-27] MEDS ORDERED: GGDM5ML PO (17:58)
[2016-12-27] MEDS ORDERED: BONIVA150 MG PO (17:59)
[2016-12-27] MEDS ORDERED: PULRESP.5 INH (17:59)
[2016-12-27] MEDS ORDERED: T PO (18:00)
[2016-12-27] MEDS ORDERED: VITD PO (18:00)
[2016-12-27] MEDS ORDERED: LIPITOR20 PO (18:00)
[2016-12-28] MEDS ORDERED: CIP5 PO (13:59)
== END 2016-10-09 14:30 | disposition home or self-care (01) | DRG 191 ==
LOC: ER 20:33 → 7NO 22:41
PROVIDERS: Emergency Medicine; Internal Medicine Geriatric Medicine
DX: J44.1 Chronic obstructive pulmonary disease with (acute) exacerbation (principal); N39.0 Urinary tract infection, site not specified; E11.51 Type 2 diabetes mellitus with diabetic peripheral angiopathy without gangrene; N18.3 Chronic kidney disease, stage 3 (moderate); I25.10 Atherosclerotic heart disease of native coronary artery without angina pectoris; E78.5 Hyperlipidemia, unspecified; I25.2 Old myocardial infarction; I73.9 Peripheral vascular disease, unspecified; F32.9 Major depressive disorder, single episode, unspecified; K21.9 Gastro-esophageal reflux disease without esophagitis; Z66 Do not resuscitate; I49.1 Atrial premature depolarization; L89.621 Pressure ulcer of left heel, stage 1; L84 Corns and callosities; E03.9 Hypothyroidism, unspecified; M19.90 Unspecified osteoarthritis, unspecified site; Z79.02 Long term (current) use of antithrombotics/antiplatelets; Z79.4 Long term (current) use of insulin; Z88.4 Allergy status to anesthetic agent; Z88.2 Allergy status to sulfonamides; Z88.0 Allergy status to penicillin; Z87.891 Personal history of nicotine dependence; Z79.82 Long term (current) use of aspirin
CPT/HCPCS: 71010; 76775; 80048; 80053; 81001; 82962; 83605; 83690; 83735; 83880; 85025; 85610; 85730; 87040; 93005; 93971; 94640; 96365; 97161-GP; 99291; A9270-GY; J1956

== ENCOUNTER 2016-10-16 19:07 | Emergency (ER) | payer MEDICARE ==
[~2016-10-16 19:07] MED LIST changes: +DIABETIC PO; +GERI-LANTA PO; +LANTUS; +LEVAQUIN750 MG PO; +MEDROL4; +MEDROL4 PO; +MIRALAX POWDER1 PKT PO; +MYRBETRIQ25 MG; +NEUR100 PO; +PRAND5 PO; +PULRESP.5 INH; +REFRESH OPH SO0.3 ML OPH; +VOLTAREN1 % TOP; +WELLBUTRIN200 MG PO; +ZANTAC 150 PO; +ZOL50 PO
[2016-12-27] MEDS ORDERED: ULTRAM50 PO (17:27)
[2016-12-27] MEDS ORDERED: PRAND1 PO (17:32)
[2016-12-27] MEDS ORDERED: PREND2 PO (17:33)
[2016-12-27] MEDS ORDERED: LANTUS SC (17:35)
[2016-12-27] MEDS ORDERED: MELATONIN5 M1 PO (17:35)
[2016-12-27] MEDS ORDERED: SPIRIVA INH (17:37)
[2016-12-27] MEDS ORDERED: NEUR100 PO (17:37)
[2016-12-27] MEDS ORDERED: CYANO1000T PO (17:38)
[2016-12-27] MEDS ORDERED: NOVOLOG SC (17:38)
[2016-12-27] MEDS ORDERED: L20 PO (17:39)
[2016-12-27] MEDS ORDERED: MUCINEX600 MG PO (17:39)
[2016-12-27] MEDS ORDERED: CALTRA600D PO (17:40)
[2016-12-27] MEDS ORDERED: VENELEX TOP (17:41)
[2016-12-27] MEDS ORDERED: SILVADENE1 % TOP (17:42)
[2016-12-27] MEDS ORDERED: VENTOLIN HFA INH (17:43)
[2016-12-27] MEDS ORDERED: ALBUTEROL0.083 % INH (17:43)
[2016-12-27] MEDS ORDERED: ZOL50 PO (17:44)
[2016-12-27] MEDS ORDERED: MYRBETRIQ25 MG PO (17:46)
[2016-12-27] MEDS ORDERED: WELLXL300 PO (17:46)
[2016-12-27] MEDS ORDERED: 8 HOUR650 MG PO (17:47)
[2016-12-27] MEDS ORDERED: NEUR300 PO (17:47)
[2016-12-27] MEDS ORDERED: VOLTAREN1 % TOP (17:50)
[2016-12-27] MEDS ORDERED: ZANTAC150 MG PO (17:51)
[2016-12-27] MEDS ORDERED: PLAVIX PO (17:52)
[2016-12-27] MEDS ORDERED: MYLANTA LIQUID PO (17:53)
[2016-12-27] MEDS ORDERED: LOP25 PO (17:54)
[2016-12-27] MEDS ORDERED: REFRES1 OPH (17:55)
[2016-12-27] MEDS ORDERED: HALF81 PO (17:55)
[2016-12-27] MEDS ORDERED: TESS PO (17:56)
[2016-12-27] MEDS ORDERED: MIRALAX POWDER1 PKT PO (17:56)
[2016-12-27] MEDS ORDERED: GGDM5ML PO (17:58)
[2016-12-27] MEDS ORDERED: BROVANA15 MCG INH (17:58)
[2016-12-27] MEDS ORDERED: BONIVA150 MG PO (17:59)
[2016-12-27] MEDS ORDERED: PULRESP.5 INH (17:59)
[2016-12-27] MEDS ORDERED: VITD PO (18:00)
[2016-12-27] MEDS ORDERED: T PO (18:00)
[2016-12-27] MEDS ORDERED: LIPITOR20 PO (18:00)
[2016-12-28] MEDS ORDERED: CIP5 PO (13:59)
== END 2016-10-16 19:45 | disposition home or self-care (01) ==
LOC: ER 19:07
DX: S90.522A Blister (nonthermal), left ankle, initial encounter (principal); E11.51 Type 2 diabetes mellitus with diabetic peripheral angiopathy without gangrene; I73.9 Peripheral vascular disease, unspecified; F17.200 Nicotine dependence, unspecified, uncomplicated; I25.2 Old myocardial infarction; I10 Essential (primary) hypertension; Z86.73 Personal history of transient ischemic attack (TIA), and cerebral infarction without residual deficits; F32.9 Major depressive disorder, single episode, unspecified; Z88.0 Allergy status to penicillin; Z88.2 Allergy status to sulfonamides; Z88.4 Allergy status to anesthetic agent; Z88.5 Allergy status to narcotic agent; Z91.018 Allergy to other foods; Z79.82 Long term (current) use of aspirin; Z79.4 Long term (current) use of insulin; Z79.899 Other long term (current) drug therapy
CPT/HCPCS: 99283; A9270-GY